=== PATIENT | female | born 1950 | race Caucasian/White ===

== ENCOUNTER 2018-04-07 13:00 | Outpatient (CLI) | payer OTHER | END 2018-04-07 13:09 | disposition home or self-care (01) | LOC: TOM 13:00 | DX: K90.0 Celiac disease (principal) ==

== ENCOUNTER 2018-08-16 15:07 | Emergency (ER) | payer OTHER ==
[~2018-08-16] VITALS: Ht 157.5 cm; Wt 81.6 kg
[2018-08-16] MEDS ORDERED: VASOTEC20 MG (15:18)
== END 2018-08-16 19:08 | disposition home or self-care (01) ==
LOC: ER 15:07
DX: G62.89 Other specified polyneuropathies (principal)

== ENCOUNTER 2019-12-14 12:25 | Outpatient (CLI) | payer OTHER ==
[~2019-12-14 12:25] MED LIST: VASOTEC20 MG
== END 2019-12-14 12:28 | disposition home or self-care (01) ==
LOC: MAMO-SONO 12:25
DX: Z12.31 Encounter for screening mammogram for malignant neoplasm of breast (principal); Z87.898 Personal history of other specified conditions; N60.11 Diffuse cystic mastopathy of right breast; N60.12 Diffuse cystic mastopathy of left breast

== ENCOUNTER 2019-12-20 12:32 | Outpatient (CLI) | payer OTHER | END 2019-12-20 12:54 | disposition home or self-care (01) | LOC: NUCLEAR 12:32 | DX: M81.0 Age-related osteoporosis without current pathological fracture (principal) ==

== ENCOUNTER 2021-01-26 13:14 | Outpatient (CLI) | payer OTHER | END 2021-01-26 13:19 | disposition home or self-care (01) | LOC: RAD 13:14 | PROVIDERS: ATTEND General Practice | DX: M54.2 Cervicalgia (principal) ==

== ENCOUNTER → 2021-09-30 | Outpatient (CLI) | payer OTHER | END | disposition home or self-care (01) | LOC: MAMO-SONO 14:06 | PROVIDERS: ATTEND Specialist | DX: N60.11 Diffuse cystic mastopathy of right breast (principal); N60.12 Diffuse cystic mastopathy of left breast; Z12.31 Encounter for screening mammogram for malignant neoplasm of breast ==

== ENCOUNTER → 2023-01-27 | Outpatient (CLI) | payer OTHER | END | disposition home or self-care (01) | LOC: MAMO-SONO 12:40 | PROVIDERS: ATTEND Obstetrics & Gynecology | DX: N60.11 Diffuse cystic mastopathy of right breast (principal); N60.12 Diffuse cystic mastopathy of left breast ==

== ENCOUNTER 2023-02-11 12:07 | Outpatient (CLI) | payer OTHER | END 2023-02-11 12:11 | disposition home or self-care (01) | LOC: NUCLEAR 12:07 | PROVIDERS: ATTEND General Practice | DX: M81.0 Age-related osteoporosis without current pathological fracture (principal) ==

== ENCOUNTER 2024-02-07 07:23 | Outpatient (CLI) | payer OTHER | END 2024-02-07 07:34 | disposition home or self-care (01) | LOC: MAMO-SONO 07:23 | PROVIDERS: ATTEND Specialist | DX: N60.11 Diffuse cystic mastopathy of right breast (principal); N60.12 Diffuse cystic mastopathy of left breast; Z12.31 Encounter for screening mammogram for malignant neoplasm of breast; R10.2 Pelvic and perineal pain ==

== ENCOUNTER 2024-12-14 07:08 | Outpatient (CLI) | payer OTHER | END 2024-12-14 07:11 | disposition home or self-care (01) | LOC: SONOGRAMA 07:08 | PROVIDERS: ATTEND General Practice | DX: R31.9 Hematuria, unspecified (principal); R10.32 Left lower quadrant pain; R10.31 Right lower quadrant pain ==

== ENCOUNTER 2024-12-18 07:27 | Outpatient (CLI) | payer OTHER | END 2024-12-18 07:28 | disposition home or self-care (01) | LOC: NUCLEAR 07:27 | PROVIDERS: ATTEND General Practice | DX: I73.9 Peripheral vascular disease, unspecified (principal); R60.0 Localized edema ==

== ENCOUNTER → 2024-12-19 07:22 | Outpatient (CLI) | payer OTHER | END | disposition home or self-care (01) | LOC: NUCLEAR 07:22 | PROVIDERS: ATTEND General Practice | DX: I73.9 Peripheral vascular disease, unspecified (principal); R60.0 Localized edema ==

== ENCOUNTER 2025-03-11 08:19 | Outpatient (CLI) | payer OTHER | END 2025-03-11 08:26 | disposition home or self-care (01) | LOC: MAMO-SONO 08:19 | PROVIDERS: ATTEND General Practice | DX: N60.11 Diffuse cystic mastopathy of right breast (principal); N60.12 Diffuse cystic mastopathy of left breast; Z12.31 Encounter for screening mammogram for malignant neoplasm of breast ==

== ENCOUNTER 2025-03-21 11:48 | Outpatient (CLI) | payer OTHER | END 2025-03-21 11:49 | disposition home or self-care (01) | LOC: NUCLEAR 11:48 | PROVIDERS: ATTEND Specialist | DX: M81.0 Age-related osteoporosis without current pathological fracture (principal) ==

== ENCOUNTER 2025-09-03 07:15 | Outpatient (CLI) | payer OTHER | END 2025-09-03 07:20 | disposition home or self-care (01) | LOC: TOM 07:15 | PROVIDERS: ATTEND Urology | DX: R31.21 Asymptomatic microscopic hematuria (principal); R31.0 Gross hematuria | CPT/HCPCS: 74178; Q9965 ==